=== PATIENT | female | born 1970 | race Hispanic/Latino ===

== ENCOUNTER 2024-04-25 10:40 | Outpatient (CLI) | payer BC ==
[~2024-04-25 10:40] MED LIST: Iopamidol 370 76% 100 ML VIAL ONE
== END 2024-04-25 10:41 | disposition home or self-care (01) ==
LOC: NAV CT 10:40
PROVIDERS: ATTEND Nurse Practitioner Family
DX: G44.89 Other headache syndrome (principal); J32.8 Other chronic sinusitis; Z82.3 Family history of stroke
CPT/HCPCS: 70470